=== PATIENT | male | born 1975 | race Caucasian/White ===

== ENCOUNTER 2016-07-12 22:21 | Observation (INO) | payer BC ==
--- NOTE | 2016-07-12 22:33 | CPEKG ---
Heart Rate: 76 RR Interval: 789 P-R Interval: 168 QRSD Interval: 96 QT Interval: 356 QTC Interval: 401 P Rio: 68 QRS Rio: 56 T Wave Rio: 10 EKG Severity - NORMAL ECG - EKG Impression: SINUS RHYTHM Electronically Signed By: Thaddeus Jerez 13-Jul-2016 07:11:53
[2016-07-12] MEDS ORDERED: NS 1,000 ML IV ONE (22:40)
[2016-07-12] MEDS ORDERED: ASPIRIN 81 MG CHEWABLE TAB PO ONE (22:40)
--- NOTE | 2016-07-12 22:40 | EDPHY ---
H & P Stated Complaint: central CP since 7pm, worse with breathing in HPI/ROS: HPI CHIEF COMPLAINT: Chest Pain HISTORY OF PRESENT ILLNESS: This patient 41-year-old male, who presents emergency room with chest pain. He is otherwise healthy with no significant medical or surgical history presents emergency room stating around 730 this evening developed pain in his chest. Patient states that he was driving to a local store and developed a dull ache in the center of his chest that radiates to his left arm and assisted down his left arm also radiates to his jaw and also radiates intrascapular early. Also tells me it hurts worse when he takes a deep breath in. Also tells me it is sharp when he takes deep breath in. No history of cardiac disease or PE. Currently tells me the pain is 6/10. No associated nausea or diaphoresis. No associated shortness of breath. Patient did take 650 mg of aspirin prior to arrival. Past Medical History: No significant medical history Past Surgical History: No significant surgical history Social History: Daily drinker, drinks 2-4 beers per day, denies drugs or tobacco Family History: No sudden cardiac or early MT in his family. However dad did have a carotid endarterectomy at age 60+. ROS REVIEW OF SYSTEMS: A comprehensive 10 point review of systems is otherwise negative aside from elements mentioned in the history of present illness. Exam Constitutional triage nursing summary reviewed, vital signs reviewed, awake/ alert. Eyes normal conjunctivae and sclera, EOMI, PERRLA. HENT normal inspection, atraumatic, moist mucus membranes, no epistaxis, neck supple/ no meningismus, no raccoon eyes. Respiratory clear to auscultation bilaterally, normal breath sounds, no respiratory distress, no wheezing. Cardiovascular rate normal, regular rhythm, no murmur, no edema, distal pulses normal. Gastrointestinal soft, non-tender, no rebound, no guarding, normal bowel sounds, no distension, no pulsatile mass. Genitourinary no CVA tenderness. Musculoskeletal no midline vertebral tenderness, full range of motion, no calf swelling, no tenderness of extremities, no meningismus, good pulses, neurovascularly intact. Skin pink, warm, & dry, no rash, skin atraumatic. Neurologic awake, alert and oriented x 3, AAOx3, moves all 4 extremities equally, motor intact, sensory intact, CN II-XII intact, normal cerebellar, normal vision, normal speech. Psychiatric normal mood/affect. Heme/Lymph/Immune no lymphadenopathy. 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 Re-evaluation: EKG interpretation by me on record in [employer] system. Impression time of EKG 2230, this is sinus rhythm rate of 76 I do not appreciate acute ischemic change on this EKG specifically no ST elevation. 1225AM: Re-evaluation this time this patient's chest pain is greatly improved after nitroglycerin. ED x-ray chest two view; negative for acute cardiopulmonary disease. Narrow mediastinum. 1226AM: This patient D-dimer is negative, troponin negative, EKG nonischemic. Chest x-ray unremarkable. However given patient's family history, and description of his chest pain substernal radiating to his left shoulder down his arm up to his neck and jaw and to his back I feel that is reasonable for serial enzyme serial EKGs and admission the hospital for cardiac rule out. I have consult Dr. Hooper for admission. Source: Patient - Personal History Current Tetanus/Diphtheria Vaccine: Yes Current Tetanus Diphtheria and Acellular Pertussis (TDAP): Yes Tetanus Vaccine Date: 2011 - Medical/Surgical History Hx Asthma: No Hx Chronic Respiratory Disease: No Hx Diabetes: No Hx Cardiac Disease: No Hx Renal Disease: No Hx Cirrhosis: No Hx Alcoholism: No Hx HIV/AIDS: No Hx Splenectomy or Spleen Trauma: No Other PMH: denies - Social History Smoking Status: Never smoked Constitutional: Initial Vital Signs Temperature (C) 36.4 C 07/12/16 22:22 Heart Rate 83 07/12/16 22:22 Respiratory Rate 16 07/12/16 22:22 Blood Pressure 165/86 H 07/12/16 22:22 O2 Sat (%) 98 07/12/16 22:22 O2 Delivery Mode Room Air Allergies/Adverse Reactions: ibuprofen Allergy (Verified 06/28/13 15:24) latex Allergy (Verified 06/28/13 15:24) Home Medications: Medication Instructions Recorded Zolpidem Tartrate [Ambien] 5 mg PO HS #10 tab 06/28/13 Medical Decision Making - Diagnostics Imaging Results: Imaging Impressions Chest X-Ray 07/12/16 22:40 Impression: Normal. No explanation for pain. - Data Points Laboratory Results: Laboratory Results 07/12/16 22:55 07/12/16 22:55 07/12/16 07/12/16 07/12/16 22:55 22:55 22:55 WBC 9.19 10^3/uL 10^3/uL (3.80-9.50) RBC 4.94 10^6/uL 10^6/uL (4.40-6.38) Hgb 14.9 g/dL g/dL (13.7-17.5) Hct 45.0 % % (40.0-51.0) MCV 91.1 fL fL (81.5-99.8) MCH 30.2 pg pg (27.9-34.1) MCHC 33.1 g/dL g/dL (32.4-36.7) RDW 14.1 % % (11.5-15.2) Plt Count 276 10^3/uL 10^3/uL (150-400) MPV 10.2 fL fL (8.7-11.7) Neut % (Auto) 59.9 % % (39.3-74.2) Lymph % (Auto) 24.9 % % (15.0-45.0) [place] % (Auto) 10.4 % % (4.5-13.0) Eos % (Auto) 3.8 % % (0.6-7.6) Baso % (Auto) 0.8 % % (0.3-1.7) Nucleat RBC Rel Count 0.0 % % (0.0-0.2) Absolute Neuts (auto) 5.50 10^3/uL 10^3/uL (1.70-6.50) Absolute Lymphs (auto) 2.29 10^3/uL 10^3/uL (1.00-3.00) Absolute Monos (auto) 0.96 10^3/uL H 10^3/uL (0.30-0.80) Absolute Eos (auto) 0.35 10^3/uL 10^3/uL (0.03-0.40) Absolute Basos (auto) 0.07 10^3/uL 10^3/uL (0.02-0.10) Absolute Nucleated RBC 0.00 10^3/uL 10^3/uL (0-0.01) Immature Gran % 0.2 % % (0.0-1.1) Immature Gran # 0.02 10^3/uL 10^3/uL (0.00-0.10) PT 13.2 SEC SEC (12.0-15.0) INR 1.01 (0.83-1.16) APTT 24.3 SEC SEC (23.0-38.0) D-Dimer < 0.27 ug/mLFEU ug/mLFEU (0.00-0.50) Sodium 141 mEq/L mEq/L (134-144) Potassium 4.2 mEq/L mEq/L (3.5-5.2) Chloride 102 mEq/L mEq/L (97-110) Carbon Dioxide 27 mEq/l mEq/l (22-31) Anion Gap 12 mEq/L mEq/L (8-16) BUN 13 mg/dL mg/dL (7-23) Creatinine 0.9 mg/dL mg/dL (0.7-1.3) Estimated GFR > 60 Glucose 104 mg/dL H mg/dL (70-100) Calcium 9.7 mg/dL mg/dL (8.5-10.4) Magnesium 2.1 mg/dL mg/dL (1.6-2.3) Total Bilirubin 0.7 mg/dL mg/dL (0.1-1.4) Conjugated Bilirubin 0.4 mg/dL mg/dL (0.0-0.5) Unconjugated Bilirubin 0.3 mg/dL mg/dL (0.0-1.1) AST 27 IU/L IU/L (17-59) ALT 23 IU/L IU/L (21-72) Alkaline Phosphatase 59 IU/L IU/L (38-126) Creatine Kinase 101 IU/L IU/L (0-224) CK-MB (CK-2) Fraction 0.59 ng/mL ng/mL (0-3.19) Troponin I < 0.012 ng/mL ng/mL (0-0.034) NT-Pro-B Natriuret Pep 17 pg/mL pg/mL (0-125) Total Protein 7.3 g/dL g/dL (6.3-8.2) Albumin 4.5 g/dL g/dL (3.5-5.0) Lipase 124.0 IU/L IU/L (23-300) Medications Given: Discontinued Medications Aspirin (Aspirin) 324 mg PO EDNOW ONE Stop: 07/12/16 22:41 Last Admin: 07/12/16 22:45 Dose: Not Given Sodium Chloride (Ns) 1,000 mls @ 0 mls/hr IV ONCE ONE PRN Reason: Wide Open Stop: 07/12/16 22:41 Last Admin: 07/12/16 22:49 Dose: 1,000 mls Nitroglycerin (Nitrostat) 0.4 mg SL EDNOW ONE Stop: 07/12/16 22:48 Last Admin: 07/12/16 22:56 Dose: 1 tab Departure - Departure Disposition: [facility] Inpatient Acute Clinical Impression: Chest pain Qualifiers: Chest pain type: unspecified Qualified Code(s): R07.9 - Chest pain, unspecified Condition: Fair Referrals: Shari Villegas MD [Primary Care Provider] - As per Instructions
[2016-07-12] MEDS ORDERED: NITROGLYCERIN 0.4 MG BTL SL ONE (22:47)
[2016-07-12 23:05] LABS: % IMMATURE GRANULYOCYTES 0.2 % (0.0-1.1); ABSOLUTE IMMATURE GRANULOCYTES 0.02 10^3/uL (0.00-0.10); ADD DIFF? NO; ADD MORPH? NO; ADD SCAN? NO; ATYPICAL LYMPHOCYTE FLAG 10 (0-99); FRAGMENT RBC FLAG 0 (0-99); HEMOGLOBIN 14.9 g/dL (13.7-17.5); LEFT SHIFT FLG 0 (0-99); LIPEMIA HEMOLYSIS FLAG 80 (0-99); MEAN CELL HEMOGLOBIN 30.2 pg (27.9-34.1); MEAN CELL HEMOGLOBIN CONCENTR. 33.1 g/dL (32.4-36.7); MEAN CELL VOLUME 91.1 fL (81.5-99.8); MEAN PLATELET VOLUME 10.2 fL (8.7-11.7); PLATELET CLUMPS FLAG 30 (0-99); PLATELET COUNT 276 10^3/uL (150-400); RED BLOOD CELL COUNT 4.94 10^6/uL (4.40-6.38); RED CELL DISTRIBUTION WIDTH 14.1 % (11.5-15.2)
[2016-07-12 23:14] LABS: ALANINE AMINOTRANSFERASE 23 IU/L (21-72); ALBUMIN 4.5 g/dL (3.5-5.0); ALKALINE PHOSPHATASE 59 IU/L (38-126); ANION GAP 12 mEq/L (8-16); ASPARTATE AMINOTRANSFERASE 27 IU/L (17-59); BILIRUBIN,TOTAL 0.7 mg/dL (0.1-1.4); BILIRUBIN-CONJUGATED 0.4 mg/dL (0.0-0.5); BILIRUBIN-UNCONJUGATED 0.3 mg/dL (0.0-1.1); CALCIUM 9.7 mg/dL (8.5-10.4); CARBON DIOXIDE 27 mEq/l (22-31); CHLORIDE 102 mEq/L (97-110); CREATININE 0.9 mg/dL (0.7-1.3); GLOMERULAR FILTRATION RATE > 60; GLUCOSE 104 mg/dL (70-100); MAGNESIUM 2.1 mg/dL (1.6-2.3); POTASSIUM 4.2 mEq/L (3.5-5.2); SODIUM 141 mEq/L (134-144); TOTAL PROTEIN 7.3 g/dL (6.3-8.2)
[2016-07-12 23:19] LABS: INR 1.01 (0.83-1.16); PROTIME(PATIENT) 13.2 SEC (12.0-15.0)
[2016-07-12 23:20] LABS: APTT 24.3 SEC (23.0-38.0)
[2016-07-12 23:26] LABS: CREATINE KINASE-MB FRACTION 0.59 ng/mL (0-3.19); TROPONIN I < 0.012 ng/mL (0-0.034)
[2016-07-13] MEDS ORDERED: ONDANSETRON DISINTEGRATING 4 MG TAB PO PRN (00:54)
[2016-07-13] MEDS ORDERED: ACETAMINOPHEN 325 MG TAB PO PRN (00:54)
[2016-07-13] MEDS ORDERED: ONDANSETRON 4 MG/2 ML VIAL IVP PRN (00:54)
[2016-07-13] MEDS ORDERED: LORazepam 0.5 MG TAB PO PRN (00:54)
[2016-07-13] MEDS ORDERED: NITROGLYCERIN 0.4 MG BTL SL PRN (04:04)
--- NOTE | 2016-07-13 04:35 | PDGENHP ---
History and Physical - Chief Complaint chest pain - History of Present Illness Patient is a 41-year-old male with hyperlipidemia and GERD who presents to the ED with complaint of chest pain. Patient states symptoms started around 7:00 p.m. as he was shopping in a hardware store. Described the pain as a dull throbbing, located substernally with radiation into his back, neck and left shoulder dull. pain was initially mild and patient thought it was possibly related to his GERD, so he tried Tums with no improvement in symptoms. At around 9:30 p.m. pain had began to intensify, was now at 5-6/10 in intensity. He took a full-dose aspirin and came to the ED for further evaluation. Patient states pain was not associated with any shortness of breath, palpitations, lightheadedness, nausea or diaphoresis. Patient denies any recent travel, any recent fever, chills, cough, congestion, nausea, vomiting, diarrhea or dysuria. He has never previously felt this type of pain, and he has never had a reason for cardiac workup in his past. On arrival to the ED patient was afebrile and hemodynamically stable. EKG did not show any obvious ischemic changes, initial labs, including troponin, were unremarkable, D-dimer was negative. Chest x-ray was also unremarkable, with normal mediastinum. He was given sublingual nitro with immediate relief of his pain. He was then admitted to the hospitalist service for further evaluation. History Information - Allergies/Home Medication List Allergies/Adverse Reactions: ibuprofen Allergy (Verified 06/28/13 15:24) latex Allergy (Verified 06/28/13 15:24) I have personally reviewed and updated: family history, medical history, social history, surgical history - Past Medical History Additional medical history: GERD. hyperlipidemia - Surgical History Additional surgical history: hernia repair - Family History Additional family history: GM: CAD requiring cabg. M uncle: early CAD in 50s. F: carotid artery stenosis - Social History Smoking Status: Former smoker (x 10 years, quit about 10 years ago) Alcohol Use: Other (daily 2-4 light beers) Drug Use: Marijuana (occasional) Review of Systems ROS: 10pt was reviewed & negative except for what was stated in HPI & below Physical Exam Temp Pulse Resp BP Pulse Ox 36.6 C 64 18 129/77 H 93 07/13/16 02:27 07/13/16 02:27 07/13/16 02:27 07/13/16 02:27 07/13/16 02:27 Constitutional: no apparent distress, appears nourished, not in pain Eyes: PERRL, anicteric sclera, EOMI Ears, Nose, Mouth, Throat: moist mucous membranes, hearing normal, ears appear normal, no oral mucosal ulcers Cardiovascular: regular rate and rhythym, no murmur, rub, or gallop, pulses symmetric bilaterally, No JVD, No edema Peripheral Pulses: 2+: dorsalis-pedis (R), dorsalis-pedis (L) Respiratory: no respiratory distress, no rales or rhonchi, clear to auscultation Gastrointestinal: normoactive bowel sounds, soft, non-tender abdomen, no palpable masses, No tenderness, No guarding, No rebound Genitourinary: no bladder fullness, no bladder tenderness Skin: warm, normal color, no rashes or abrasions, no fluctuance, no induration, No mottled Musculoskeletal: full muscle strength, no muscle tenderness, normal joint ROM, no joint effusions Neurologic: AAOx3, sensation intact bilaterally, CN II-XII Intact, No weakness, No numbness, No facial droop Psychiatric: interacting appropriately, not anxious, not encephalopathic, thought process linear Lab Data & Imaging Review 07/12/16 22:55 07/12/16 22:55 WBC 9.19 10^3/uL (3.80-9.50) 07/12/16 22:55 RBC 4.94 10^6/uL (4.40-6.38) 07/12/16 22:55 Hgb 14.9 g/dL (13.7-17.5) 07/12/16 22:55 Hct 45.0 % (40.0-51.0) 07/12/16 22:55 MCV 91.1 fL (81.5-99.8) 07/12/16 22:55 MCH 30.2 pg (27.9-34.1) 07/12/16 22:55 MCHC 33.1 g/dL (32.4-36.7) 07/12/16 22:55 RDW 14.1 % (11.5-15.2) 07/12/16 22:55 Plt Count 276 10^3/uL (150-400) 07/12/16 22:55 MPV 10.2 fL (8.7-11.7) 07/12/16 22:55 Neut % (Auto) 59.9 % (39.3-74.2) 07/12/16 22:55 Lymph % (Auto) 24.9 % (15.0-45.0) 07/12/16 22:55 [place] % (Auto) 10.4 % (4.5-13.0) 07/12/16 22:55 Eos % (Auto) 3.8 % (0.6-7.6) 07/12/16 22:55 Baso % (Auto) 0.8 % (0.3-1.7) 07/12/16 22:55 Nucleat RBC Rel Count 0.0 % (0.0-0.2) 07/12/16 22:55 Absolute Neuts (auto) 5.50 10^3/uL (1.70-6.50) 07/12/16 22:55 Absolute Lymphs (auto) 2.29 10^3/uL (1.00-3.00) 07/12/16 22:55 Absolute Monos (auto) 0.96 10^3/uL (0.30-0.80) H 07/12/16 22:55 Absolute Eos (auto) 0.35 10^3/uL (0.03-0.40) 07/12/16 22:55 Absolute Basos (auto) 0.07 10^3/uL (0.02-0.10) 07/12/16 22:55 Absolute Nucleated RBC 0.00 10^3/uL (0-0.01) 07/12/16 22:55 Immature Gran % 0.2 % (0.0-1.1) 07/12/16 22:55 Immature Gran # 0.02 10^3/uL (0.00-0.10) 07/12/16 22:55 PT 13.2 SEC (12.0-15.0) 07/12/16 22:55 INR 1.01 (0.83-1.16) 07/12/16 22:55 APTT 24.3 SEC (23.0-38.0) 07/12/16 22:55 D-Dimer < 0.27 ug/mLFEU (0.00-0.50) 07/12/16 22:55 Sodium 141 mEq/L (134-144) 07/12/16 22:55 Potassium 4.2 mEq/L (3.5-5.2) 07/12/16 22:55 Chloride 102 mEq/L (97-110) 07/12/16 22:55 Carbon Dioxide 27 mEq/l (22-31) 07/12/16 22:55 Anion Gap 12 mEq/L (8-16) 07/12/16 22:55 BUN 13 mg/dL (7-23) 07/12/16 22:55 Creatinine 0.9 mg/dL (0.7-1.3) 07/12/16 22:55 Estimated GFR > 60 07/12/16 22:55 Glucose 104 mg/dL (70-100) H 07/12/16 22:55 Calcium 9.7 mg/dL (8.5-10.4) 07/12/16 22:55 Magnesium 2.1 mg/dL (1.6-2.3) 07/12/16 22:55 Total Bilirubin 0.7 mg/dL (0.1-1.4) 07/12/16 22:55 Conjugated Bilirubin 0.4 mg/dL (0.0-0.5) 07/12/16 22:55 Unconjugated Bilirubin 0.3 mg/dL (0.0-1.1) 07/12/16 22:55 AST 27 IU/L (17-59) 07/12/16 22:55 ALT 23 IU/L (21-72) 07/12/16 22:55 Alkaline Phosphatase 59 IU/L (38-126) 07/12/16 22:55 Creatine Kinase 101 IU/L (0-224) 07/12/16 22:55 CK-MB (CK-2) Fraction 0.59 ng/mL (0-3.19) 07/12/16 22:55 Troponin I < 0.012 ng/mL (0-0.034) 07/12/16 22:55 NT-Pro-B Natriuret Pep 17 pg/mL (0-125) 07/12/16 22:55 Total Protein 7.3 g/dL (6.3-8.2) 07/12/16 22:55 Albumin 4.5 g/dL (3.5-5.0) 07/12/16 22:55 Lipase 124.0 IU/L (23-300) 07/12/16 22:55 Visualized and Interpreted Chest x-ray results: Yes Chest X-Ray results: no infiltrate, normal Visualized and Interpreted EKG results: Yes EKG Interpretation: Positive for: normal sinsus rhythm (q in III, present in old ekg) Assessment & Plan Assessment: patient is a 41-year-old male with history of hyperlipidemia and GERD who presents to the ED with an episode of substernal chest pain, with radiation to his neck and left shoulder , with a positive family history of cardiac disease. initial ED workup reveals negative initial troponin, nonischemic EKG normal chest x-ray. Given his previous family history of CAD and is presenting in symptomatology, he is being admitted for further cardiac risk stratification. Plan: # chest pain Patient describes substernal chest pain, with radiation to his L neck and shoulder, that was relieved with SL nitro. Risk factors include family history of CAD. Initial EKG is nonischemic and troponin is negative. Differential includes ACS, costochondritis, GERD, pleurisy. PE has been ruled out with negative d-dimer. - trend troponins, EKGs - check TSH, lipid panel - if ACS ruled out, further risk stratify with exercise stress test - cont aspirin, statin # GERD Cont PPI as needed. # dispo: admit to observation status for evaluation of chest pain. # gen: NPO DVT ppx: low risk Full code
[2016-07-13 05:06] LABS: % IMMATURE GRANULYOCYTES 0.2 % (0.0-1.1); ABSOLUTE IMMATURE GRANULOCYTES 0.02 10^3/uL (0.00-0.10); ADD DIFF? NO; ADD MORPH? NO; ADD SCAN? NO; ATYPICAL LYMPHOCYTE FLAG 0 (0-99); FRAGMENT RBC FLAG 0 (0-99); HEMATOCRIT 42.8 % (40.0-51.0); HEMOGLOBIN 14.2 g/dL (13.7-17.5); LEFT SHIFT FLG 0 (0-99); LIPEMIA HEMOLYSIS FLAG 80 (0-99); MEAN CELL HEMOGLOBIN 30.4 pg (27.9-34.1); MEAN CELL HEMOGLOBIN CONCENTR. 33.2 g/dL (32.4-36.7); MEAN CELL VOLUME 91.6 fL (81.5-99.8); MEAN PLATELET VOLUME 10.4 fL (8.7-11.7); PLATELET CLUMPS FLAG 0 (0-99); PLATELET COUNT 241 10^3/uL (150-400); RED BLOOD CELL COUNT 4.67 10^6/uL (4.40-6.38); RED CELL DISTRIBUTION WIDTH 14.1 % (11.5-15.2)
[2016-07-13 05:24] LABS: INR 1.09 (0.83-1.16)
[2016-07-13 05:25] LABS: ANION GAP 6 mEq/L (8-16); APTT 25.8 SEC (23.0-38.0); CALCIUM 9.6 mg/dL (8.5-10.4); CARBON DIOXIDE 26 mEq/l (22-31); CHLORIDE 109 mEq/L (97-110); CHOLESTEROL 186 mg/dL (140-200); CHOLESTEROL/HDL RATIO 5.64 RATIO (1.00-4.97); CREATININE 0.7 mg/dL (0.7-1.3); GLOMERULAR FILTRATION RATE > 60; GLUCOSE 95 mg/dL (70-100); HIGH DENSITY LIPOPROTEIN 33 mg/dL (40-65); LOW DENSITY LIPOPROTEIN 132 mg/dL (70-100); MAGNESIUM 1.9 mg/dL (1.6-2.3); NON-HIGH DENSITY LIPOPROTEIN 153 mg/dL (90-129); POTASSIUM 4.4 mEq/L (3.5-5.2); SODIUM 141 mEq/L (134-144); TRIGLYCERIDE 106 mg/dL (40-150); VERY LOW DENSITY LIPOPROTEINS 21 mg/dL (8-25)
[2016-07-13 05:35] LABS: CREATINE KINASE-MB FRACTION 0.51 ng/mL (0-3.19); TROPONIN I < 0.012 ng/mL (0-0.034)
[2016-07-13 07:29] VITALS: BP 112/76; PULSE 80; RESP 16; TEMP 98.3; O2SAT 97
[2016-07-13] MEDS ORDERED: MULTIVITAMINS 1 EACH TAB PO SCH (09:00)
[2016-07-13] MEDS ORDERED: Herbals/Supplements -Info Only PO SCH (09:00)
--- NOTE | 2016-07-13 10:02 | PDCARST ---
CAR Stress Test Results Type of Stress Test: TM stress test Indication: cp Description of Procedure: After informed consent was obtained, pt was exercised according to Jareth Protocol. Monitoring was performed with standard stress leakage tester electrode placement. Vital signs were monitored according to protocol throughout the procedure. STRESS EKG AND HEMODYNAMIC DATA. Exercise time: 9: 40 min. This is equivalent to: 10.6 METS. Resting heart rate: 76 bpm. Resting blood pressure: 132/74 mmHg. Resting O2 saturation: 96%. Peak heart rate: 188 bpm. This is 105 % of age predicted maximum heart rate response. Peak blood pressure: 180/80 mmHg. Exercise O2: 98%. Arrhythmias : None. Reason for termination: The test was stopped due to maximal effort. Symptoms: The patient experienced no typical symptoms of angina during stress or recovery. STRESS TEST ANALYSIS. Baseline ECG: SR. Stress ECG: Sinus tach. exercise induced ischemic ECG changes: No. Rhythm: no arrhythmias noted during exercise and recovery. Blood pressure:normal blood pressure response to exercise. Exercise tolerance: The patient has normal exercise tolerance adjusted for age and gender. Symptoms: No exercise induced symptoms. Impression: IMPRESSIONS: Stress ECG negative for ischemia. The Torres Treadmill Score is 9 consistent with low cardiovascular risk (<1% annual mortality). Conclusion: Likely noncardiac cp.
--- NOTE | 2016-07-13 10:57 | PDDCSUM ---
Discharge Summary Discharge Summary: DISCHARGE SUMMARY FOLLOW-UP ITEMS: Follow-up reflux symptoms DATE OF ADMISSION: 07/12/2016 DATE OF DISCHARGE: 07/13/2016 DISCHARGE DIAGNOSES: 1. Acute chest pain 2. Suspected GERD CONSULTATIONS: None PROCEDURES / IMAGING: Exercise stress test demonstrating no inducible ischemia, low risk CHIEF COMPLAINT: Acute chest pain SUBJECTIVE: Patient reports a 1/10 chest pain at this time PHYSICAL EXAM ON DISCHARGE: Systolic blood pressure 110, heart rate 60, afebrile overnight, satting well on room air, alert awake oriented x3, no tachypnea LABS ON DISCHARGE: Troponin negative x2, negative D-dimer, LDL 130, creatinine 0.7, white blood cell count 9700, hemoglobin 14.2 HOSPITAL COURSE BY PROBLEM: 1. Acute chest pain. Atypical, ruled out for acute coronary syndrome with negative troponin x2, ruled out for inducible obstructive coronary disease with negative stress test, ruled out for pulmonary embolism with negative D-dimer, ruled out for any pneumonia or other pulmonary etiology with normal chest x- ray. Most likely secondary to GERD with some dilatation of the stomach on chest x-ray and likely subsequent reflux with recent discontinuation of PPI and recent ingestion of spicy kimchi. I advised the patient that he should empirically take [id number] Prilosec for the next 2 weeks and use either scheduled or as needed ranitidine plus times plus Maalox for further symptom management and gauge effect. 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 In that case, I would recommend scheduled ibuprofen for approximately 1 week or until symptoms piper. For both of these aforementioned issues, I recommend the patient follow up with his primary care provider next week and seek further guidance as well as outpatient monitoring. DISCHARGE MEDICATIONS: Please see official discharge medication reconciliation sheet in chart Prilosec 20 mg daily, as needed ranitidine 150 mg twice daily, as needed times, as- needed Maalox. DISCHARGE INSTRUCTIONS: Please follow up with Dr. Villegas next week.
== END 2016-07-13 12:06 | disposition home or self-care (01) ==
LOC: F3E 07-13 02:18
PROVIDERS: ADMIT Internal Medicine; ATTEND Internal Medicine
DX: R07.9 Chest pain, unspecified (principal); K21.9 Gastro-esophageal reflux disease without esophagitis; E78.5 Hyperlipidemia, unspecified; Z87.891 Personal history of nicotine dependence; Z82.49 Family history of ischemic heart disease and other diseases of the circulatory system
CPT/HCPCS: 71020; 93005; 93017; 96360; 99285; G0378

== ENCOUNTER 2016-09-21 17:12 | Emergency (ER) | payer BC ==
[2016-09-21 17:32] VITALS: RESP 16
--- NOTE | 2016-09-21 17:40 | EDPHY ---
H & P Stated Complaint: requests rabies vac -bat in house overnight Time Seen by Provider: 09/21/16 17:39 - Personal History Current Tetanus/Diphtheria Vaccine: Unsure Tetanus Vaccine Date: 2011 - Medical/Surgical History Hx Asthma: No Hx Chronic Respiratory Disease: No Hx Diabetes: No Hx Cardiac Disease: No Hx Renal Disease: No Hx Cirrhosis: No Hx Alcoholism: No Hx HIV/AIDS: No Hx Splenectomy or Spleen Trauma: No Other PMH: denies - Social History Smoking Status: Former smoker Constitutional: Initial Vital Signs Temperature (C) 36.5 C 09/21/16 17:31 Heart Rate 75 09/21/16 17:31 Respiratory Rate 16 09/21/16 17:31 Blood Pressure 128/82 H 09/21/16 17:31 O2 Sat (%) 98 09/21/16 17:31 O2 Delivery Mode Room Air Allergies/Adverse Reactions: ibuprofen Allergy (Verified 06/28/13 15:24) latex Allergy (Verified 06/28/13 15:24) Home Medications: Medication Instructions Recorded PRILOSEC 09/21/16 Medical Decision Making ED Course/Re-evaluation: CHIEF COMPLAINT: Bat in house HISTORY OF PRESENT ILLNESS: The patient is a 41 y/o male who arrives at the recommendation of his PCP for rabies vaccination due to exposure of a bat in his house. He personally handled the bat and released it. He is requesting the rabies shots as a precaution. He denies any symptoms. REVIEW OF SYSTEMS: A 10 point review of systems was performed and is negative with the exception of the elements mentioned in the history of present illness. PHYSICAL EXAM: HR, BP, O2 Sat, RR. Temp noted General Appearance: Alert, well hydrated, appropriate, and non-toxic appearing. Head: Atraumatic without scalp tenderness or obvious injury Eyes: Pupils equal, round, reactive to light and accommodation, EOMI, no trauma , no injection. Nose: Atraumatic, no rhinorrhea, clear. Throat: Mucus membranes moist. Neck: Supple. Respiratory: No retractions, no distress, no wheezes, and no accessory muscle use. Lungs are clear to auscultation bilaterally. Cardiovascular: Regular rate and rhythm, no murmurs, rubs, or gallops. Good capillary refill all extremities. Musculoskeletal: Normal active ROM of all extremities, atraumatic. Neurological: Alert, appropriate, and interactive. Non-focal neuro. Skin: No rashes, good turgor, no nodules on palpation. Past medical history: Noncontributory Past surgical history: Noncontributory Family history: Noncontributory Social history: Lives in [place] with and son. DIFFERENTIAL DIAGNOSIS: The differential diagnosis for the patient's complaint included but was not limited to rabies exposure, rodent bite, or bat bite. MEDICAL DECISION MAKING: The patient is an asymptomatic 41 y/o male who presents with exposure to a bat that was in his house. He is requesting the rabies vaccinations. Plan for first dose of rabies vaccination and rabies immunoglobin. He has scheduled follow up with her PCP for the completion of the vaccination. He understands he needs to complete the vaccination course without fail. He is comfortable with this plan. Departure - Departure Disposition: Home, Routine, Self-Care Clinical Impression: Rabies exposure, Rabies, need for prophylactic vaccination against Condition: Good Instructions: Rabies Vaccine (By injection), Rabies Immune Globulin (By injection), Rabies (ED) Additional Instructions: 1. Follow up with you PCP as planned. 2. Return to the ED for any worsening of condition. Referrals: Shari Villegas MD [Primary Care Provider] - As per Instructions Report Scribed for: Rafita Tang Report Scribed by: Salome Horvath Date of Report: 09/21/16 Time of Report: 18:13
[2016-09-21] MEDS ORDERED: RABIES VACC, HUMAN DIPLOID/PF 2.5 UNIT VIAL (RABAVERT) IM ONE (18:53)
[2016-09-21] MEDS ORDERED: RABIES IMMUNE GLOBULIN 300 UNIT/2 ML VIAL IM ONE (18:53)
[2016-09-21] MEDS ORDERED: RABIES IMMUNE GLOBULIN 150 UNIT/ML 10 ML VIAL IM ONE (19:30)
[2016-09-21 21:26] VITALS: BP 137/93; PULSE 77; TEMP 98.1; O2SAT 100
== END 2016-09-21 21:26 | disposition home or self-care (01) ==
DX: Z20.3 Contact with and (suspected) exposure to rabies (principal); Z23 Encounter for immunization; Z87.891 Personal history of nicotine dependence; Z91.040 Latex allergy status

== ENCOUNTER → 2017-11-18 | Outpatient (CLI) | payer BC | LOC: BMCIMAGING 17:05 | PROVIDERS: ATTEND Family Medicine | DX: J98.4 Other disorders of lung (principal) ==

== ENCOUNTER → 2018-01-07 | Outpatient (CLI) | payer OTHER | LOC: BMCIMAGING 14:24 → EDSTATUS 15:17 | PROVIDERS: ATTEND Physician Assistant | DX: M79.674 Pain in right toe(s) (principal); M79.675 Pain in left toe(s); M19.071 Primary osteoarthritis, right ankle and foot; M19.072 Primary osteoarthritis, left ankle and foot ==

== ENCOUNTER 2018-08-10 19:31 | Emergency (ER) | payer OTHER | END 2018-08-10 21:45 | disposition home or self-care (01) ==